=== PATIENT | female | born 1990 | race Caucasian/White ===

== ENCOUNTER 2018-12-21 14:04 | Emergency (ER) | payer OTHER ==
[~2018-12-21] VITALS: Ht 167.6 cm; Wt 108.9 kg
[~2018-12-21 14:04] MED LIST: PEPCID40 MG PO; PREDNISONE 20 M20 M1 PO; TRAMADOL 50 MG50 MG PO; ZOLOFT50 MG PO; ZYRTEC 10 MG TA10 MG PO
[2018-12-21 15:30] VITALS: BP 131/82
[2018-12-21] MEDS ORDERED: AMOXICILLIN 50500 MG PO (15:37)
[2018-12-21] MEDS ORDERED: CORTISPORIN OTI10 M2 OTIC (15:37)
== END 2018-12-21 16:17 | disposition home or self-care (01) ==
LOC: M.ERS 14:04
DX: H60.93 Unspecified otitis externa, bilateral (principal); J02.9 Acute pharyngitis, unspecified; Z98.890 Other specified postprocedural states